=== PATIENT | female | born 1955 | race Caucasian/White ===

== ENCOUNTER 2017-06-20 12:43 | Emergency (ER) | payer BC ==
[2017-06-20] MEDS ORDERED: NS 0.9% 1000 ML* 1,000 ML IV ONE (13:08)
[2017-06-20 13:39] LABS: Hematocrit 42 % (35-47); Hemoglobin 13.9 g/dl (12.0-16.0); Mean Corpuscular HGB Conc 33 g/dl (31-36); Mean Corpuscular Hemoglobin 31 pg (27-31); Mean Corpuscular Volume 93 fL (80-97); Mean Platelet Volume 8 um3 (7.4-10.4); Red Blood Count 4.49 10^6/ul (4.0-5.4); Red Cell Distribution Width 13 % (10.5-15); White Blood Count 6.3 10^3/ul (3.5-10.8)
[2017-06-20 13:50] LABS: ALT 13 U/L (7-52); AST 16 U/L (13-39); Albumin 4.4 g/dL (3.2-5.2); Alkaline Phosphatase 71 U/L (34-104); Anion Gap 6 mmol/L (2-11); BUN/Creatinine Ratio 25.6 (8-20); Blood Urea Nitrogen 20 mg/dL (6-24); CO2 Carbon Dioxide 26 mmol/L (22-32); Calcium 9.5 mg/dL (8.6-10.3); Chloride 104 mmol/L (101-111); EGFR African American 96.6 (>60); EGFR Non-African American 75.1 (>60); Glucose 100 mg/dL (70-100); Potassium 4.1 mmol/L (3.5-5.0); Sodium 136 mmol/L (133-145); Total Protein 7.4 g/dL (6.4-8.9)
--- NOTE | 2017-06-20 13:54 | RAD ---
INDICATION: Left facial pain with radiation to the left upper extremity and dizziness x2 days COMPARISON: Similar examination dated April 17, 2009 TECHNIQUE: Contiguous axial sections of the brain were obtained from the skull base to the vertex without contrast. FINDINGS: The ventricles, cisterns and sulci are within normal limits. The leary-white matter differentiation is adequately maintained and there is no sulcal effacement. No significant focal abnormality or mass effect is present. There is no evidence for intracranial hemorrhage. No significant focal osseous abnormality is present. The visualized portion of the paranasal sinuses and mastoid air cells appear clear. IMPRESSION: Normal CT of the brain.
[2017-06-20 14:44] LABS: Urine Bacteria Absent (Absent); Urine Bilirubin Negative (Negative); Urine Glucose Negative (Negative); Urine Nitrite Negative (Negative)
--- NOTE | 2017-06-20 15:32 | RAD ---
INDICATION: Left facial pain COMPARISON: None. TECHNIQUE: Single AP view of the chest was obtained. FINDINGS: The heart and mediastinum exhibit normal size and contour. The lungs are grossly clear. There is no evidence of a large pleural effusion. Visualized bones are normal for the patient's age. IMPRESSION: No radiographic evidence for acute cardiopulmonary abnormality on this single AP view chest x-ray.
[2017-06-20 16:30] LABS: C Reactive Protein < 1.00 mg/L (< 5.00)
[2017-06-20 16:38] VITALS: BP 115/61
[2017-06-20 17:05] LABS: Erythrocyte Sed Rate 17 mm/Hr (0-30)
--- NOTE | 2017-07-06 02:53 | ED ---
Gini Hammonds Thomas, scribed for Shannan Hooks MD on 06/20/17 at 1334 . Neurological HPI - HPI Summary HPI Summary: The pt is a 61 y/o F accompanied by her and referred to the ED from [facility] nursing triage line after c/o L face feeling funny. Her left face is slightly more numb than her right face, but it is not completely numb. Also, her left eye is watering but not her right eye. 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 She was treated with high-dose steroids at the time and reports no current deficits resulting from this. She reports that her eye and facial symptoms are similar to her prior [place] Palsy. However, she also complains of neck soreness and left arm pain. The left arm pain is described as throbbing and it radiates from her upper left arm and down to her mid forearm. She denies arm weakness and any pain in her hand or fingers. She also has a neck injury that in the past has caused cluster headaches as well as does weird things. She rates her pain level 3/10. Pt additionally c/o fatigue , lightheadedness, dizziness, mild temporal GALINDO, and forgetfulness (onset 3 weeks ago). Pt denies leg weakness/numbness/paresthesia, speech deficits. PMHx: Left-sided [place] Palsy (10 years ago), neck injury, cluster headaches. PSHx: tonsillectomy. SHx: no smoking, no alcohol use, no illicit drug use. FHx: CAD. Her PCP is Dr. Verma. Patients medication reviewed this visit. - History of Current Complaint Chief Complaint: EDGeneral Stated Complaint: LT SIDED PAIN Time Seen by Provider: 06/20/17 12:58 Hx Obtained From: Patient, Family/Manufacturing Specialist - in the room Onset/Duration: Started hours ago - onset of symptoms today, Still Present Timing: Constant Onset Severity: Moderate Current Severity: Moderate Neurological Deficit Location: Facial - numbness Headache Location: Temporal (Left) Pain Intensity: 3 Pain Scale Used: 0-10 Numeric Character: Lightheaded, Dizzy, Numbness/Tingling Aggravating: Nothing Alleviating: Nothing Associated Signs and Symptoms: Positive: Headache - mild temporal GALINDO, Pain - upper L arm and down into forearm, Numbness - slight L facial numbness, Lightheadness, Neck Pain/Stiffness - described as soreness, chronic. Negative: Fever TPA Considered: No - no last known well, not a stroke Similar Episode/Dx as: Pratt's Palsy - Additional Pertinent History Referred By: Telephone Referral - pt was calling to get an appt with her PCP, and telephone triaged advised that with her symptoms she should be evaluated for possible stroke or Pratt's palsy - Allergy/Home Medications Allergies/Adverse Reactions: Allergies Allergy/AdvReac Type Severity Reaction Status Date / Time No Known Allergies Allergy Verified 06/20/17 14:00 PMH/Surg Hx/FS Hx/Imm Hx Previously Healthy: No Musculoskeletal History: Reports: Other Musculoskeletal History - Hx neck injury Neurological History: Reports: Other Neuro Impairments/Disorders - Hx cluster headaches, left Pratt's Palsy - Surgical History Surgery Procedure, Year, and Place: Tonsillectomy. Infectious Disease History: No Infectious Disease History: Denies: Traveled Outside the [place] in Last 30 Days - Family History Known Family History: Positive: Cardiac Disease - Social History Lives: With Family Alcohol Use: None Hx Substance Use: No Substance Use Type: Reports: None Smoking Status (MU): Never Smoked Tobacco Review of Systems Negative: Fever Positive: Other - Left eye watering but not right Cardiovascular: Negative Respiratory: Negative Positive: Other - POS: L arm pain (upper arm and into forearm, described as soreness); NEG: leg pain Skin: Negative Neurological: Other - POS: face "feeling funny", fatigue, lightheadedness, forgetfullness (onset 3 weeks ago); NEG: leg parasthesias, speech deficits Positive: Headache - mild left temporal, Numbness - mild L facial numbness Psychological: Normal All Other Systems Reviewed And Are Negative: Yes Physical Exam Triage Information Reviewed: Yes Vital Signs On Initial Exam: Initial Vitals Temp Pulse Resp BP Pulse Ox 98.2 F 70 16 135/84 99 06/20/17 12:47 06/20/17 12:47 06/20/17 12:47 06/20/17 12:47 06/20/17 12:47 Vital Signs Reviewed: Yes Appearance: Positive: Well-Appearing, Well-Nourished, Pain Distress Skin: Positive: Warm, Skin Color Reflects Adequate Perfusion Head/Face: Positive: Normal Head/Face Inspection Eyes: Positive: EOMI, HARDIK, Conjunctiva Clear, Other: - no discharge or watering noted ENT: Positive: Normal ENT inspection, Pharynx normal, TMs normal Neck: Positive: Supple, No Lymphadenopathy, Tenderness @ - diffuse post neck tenderness, no spinal tenderness Respiratory/Lung Sounds: Positive: Clear to Auscultation, Breath Sounds Present , Other - No respiratory distress Cardiovascular: Positive: RRR, Pulses are Symmetrical in both Upper and Lower Extremities, Other - Brisk cap refill. Negative: Murmur Abdomen Description: Positive: Nontender, Soft Bowel Sounds: Positive: Present Musculoskeletal: Positive: Strength/ROM Intact Neurological: Positive: Sensory/Motor Intact, Alert, Oriented to Person Place, Time, CN Intact II-III, Reflexes Intact, Normal Gait, Facial Symmetry, Speech Normal, Other - Motor function 5/5. Sensations intact. Gait WNL. Biceps, knee, and ankle reflexes are all intact. Psychiatric: Positive: Normal Diagnostics - Vital Signs Vital Signs Temp Pulse Resp BP Pulse Ox 06/20/17 12:47 98.2 F 70 16 135/84 99 - Laboratory Result Diagrams: 06/20/17 13:23 06/20/17 13:23 Lab Statement: Any lab studies that have been ordered have been reviewed, and results considered in the medical decision making process. - Radiology CXR Xray Interpretation: No Acute Changes - CXR shows No radiographic evidence for acute cardiopulmonary abnormality on this single AP view chest x-ray. ED physician has reviewed this report and agrees. Radiology Interpretation Completed By: Radiologist - CT CT Brain CT Interpretation: No Acute Changes - CT Brain shows normal CT of the brain. ED physician has reviewed this report and agrees. CT Interpretation Completed By: Radiologist - EKG 13:00 Cardiac Rate: NL - Sinus rhythm 64 BPM Nml AV/IV/QTc/Purcell. No acute changes. EKG Comparison: No Significant Change - No changes compared to prior EKG on 01/23. Re-Evaluation - Re-Evaluation First Eval Re-Evaluation Time: 16:00 Change: Improved Comment: Her GALINDO is a 4/10 and her neck ache is 4/10. This neck pain is usual for her. I advised her about the results. She will arrange a [place] appointment with Dr. Verma for further evaluation and follow up. Course/Dx - Course Assessment/Plan: The pt is a 61 y/o F c/o L facefeeling funny, mild L facial numbness, and L eye watering. She has a Hx of Left-sided Clinton Palsy 10 years ago that was treated with high-dose steroids. She reports that her eye and facial symptoms are similar to her prior [place] Palsy. She also complains of neck soreness, left arm pain, fatigue, lightheadedness, dizziness, mild temporal GALINDO, and forgetfulness (onset 3 weeks ago). On exam pt has facial symmetry with forehead creases intact and a completely intact neuro exam. In the ED the patient was given IV fluids. Bloodwork shows bilirubin 1.40 and Troponin 0.00. UA shows specific gravity 1.004, blood 1+, and present squamous cells. EKG at 13:00 shows sinus rhythm 64 BPM with on acute changes. CT Brain shows normal CT of the brain. CXR was negative. ED Physician has reviewed these reports and agrees. I consulted with Dr. Somers, neurology, regarding patient care. She advised against steroids, said that a stroke scale was not necessary, and for the patient to follow up with her PCP. The patient was diagnosed with paresthesia and headache. He will be discharged home with follow up by Dr Verma. - Differential Dx Differential Diagnoses Neuro: Positive: Pratt's Palsy, Cerebrovascular Accident, Headache, Migraine - Diagnoses Provider Diagnoses: Paresthesia, Headache - Physician Notifications Discussed Care Of Patient With: Genie Somers Time Discussed With Above Provider: 16:02 Instructed by Provider To: Other - I consulted regarding patient care. Discharge - Discharge Plan Condition: Stable Disposition: HOME Patient Education Materials: Paresthesia (ED), Acute Headache (ED) Referrals: Wale Verma MD [Primary Care Provider] - 2 Days Additional Instructions: Your lab tests and CT brain and chest xray were all unremarkable. We have given you copies of these. We have spoken with Dr. Somers, the neurologist [employer] attendant, who does not believe this is a stroke or Pratt's palsy, and does not feel any further treatment is needed. Please follow up with Dr. Verma for further evaluation. Return to the ER if you have new or worsening symptoms. The documentation as recorded by the Gini hathaway Thomas accurately reflects the service I personally performed and the decisions made by , Shannan Hooks MD.
== END 2017-06-20 16:38 | disposition home or self-care (01) ==
LOC: ED 12:43
DX: R51 Headache (principal); R42 Dizziness and giddiness; R20.9 Unspecified disturbances of skin sensation
CPT/HCPCS: 36415; 70450; 71010; 80053; 81003; 81015; 83605; 84484; 85025; 85610; 85652; 85730; 86140; 93005; 99283